=== PATIENT | male | born 1950 | race Caucasian/White ===

== ENCOUNTER 2020-06-10 05:39 | Day surgery (SDC) | payer MEDICARE, OTHER ==
[~2020-06-10 05:39] MED LIST: CEFAZOLIN 2 GM/D5W RTU 2 GM/50 ML RTUPB IV ONE; CEFAZOLIN 2 GM/D5W RTU 2 GM/50 ML RTUPB IV PRN
[2020-06-10] MEDS ORDERED: LIDOCAINE 2% INJ-PF (20 MG/ML) 10 ML AMPUL ONE (06:53)
[2020-06-10] MEDS ORDERED: FENTANYL CITRATE INJ/PF 100 MCG/2 ML AMPUL ONE (06:53)
[2020-06-10] MEDS ORDERED: ONDANSETRON HCL INJ/PF 4 MG/2 ML SDV ONE (06:53)
[2020-06-10] MEDS ORDERED: PROPOFOL INJ 200 MG/20 ML VIAL IV ONE (06:53)
[2020-06-10] MEDS ORDERED: MIDAZOLAM 2 MG/2 ML INJ ONE (06:53)
[2020-06-10] MEDS ORDERED: BUPIVACAINE HCL 0.5 % INJ/PF 30 ML SDV ONE (07:03)
[2020-06-10 07:05] LABS: HEMATOCRIT 33.8 % (37.9-51.0); HEMOGLOBIN 11.6 g/dL (13.5-17.0); MEAN CORPUSCULAR HEMOGLOBIN 32.7 pg (27.0-33.4); MEAN CORPUSCULAR HGB CONC 34.1 g/dL (32.0-36.0); MEAN CORPUSCULAR VOLUME 96 fl (80-97); PLATELET COUNT 151 10^3/uL (150-450); RED BLOOD COUNT 3.53 10^6/uL (4.35-5.55); RED CELL DISTRIBUTION WIDTH 15.2 % (11.5-14.0); WHITE BLOOD COUNT 5.2 10^3/uL (4.0-10.5)
[2020-06-10 07:29] LABS: ANION GAP 8 (5-19); BLOOD UREA NITROGEN 21 mg/dL (7-20); CALCIUM 9.3 mg/dL (8.4-10.2); CARBON DIOXIDE 26 mmol/L (22-30); CHLORIDE 104 mmol/L (98-107); GLUCOSE 122 mg/dL (75-110); POTASSIUM 3.5 mmol/L (3.6-5.0)
[2020-06-10] MEDS ORDERED: LIDOCAINE 1%/EPINEPHRINE INJ 20 ML VIAL ONE (07:30)
[2020-06-10] MEDS ORDERED: PROMETHAZINE HCL INJ 25 MG/1 ML VIAL IV PRN ×2 (08:12)
[2020-06-10] MEDS ORDERED: DIPHENHYDRAMINE HCL 50 MG/ML VIAL IV PRN (08:12)
[2020-06-10] MEDS ORDERED: MORPHINE SULFATE 10 MG/ML INJ IV PRN (08:12)
[2020-06-10] MEDS ORDERED: OXYCODONE-ACETAMINOPHEN 5-325 MG TABLET PO PRN ×2 (08:12)
[2020-06-10] MEDS ORDERED: ONDANSETRON HCL INJ/PF 4 MG/2 ML SDV IV PRN (08:12)
[2020-06-10] MEDS ORDERED: FENTANYL CITRATE INJ/PF 100 MCG/2 ML AMPUL IV PRN ×3 (08:12)
--- NOTE | 2020-06-10 08:36 | Operative Report ---
Operative Report DATE OF SURGERY: 06/10/20 PREOPERATIVE DIAGNOSIS: left carpal tunnel syndrome POSTOPERATIVE DIAGNOSIS: same OPERATION: left carpal tunnel release SURGEON: HALEY STONE ANESTHESIA: LMAC COMPLICATIONS: none ESTIMATED BLOOD LOSS: minimal INTRAOPERATIVE FINDINGS: same PROCEDURE: Indications for procedure: The patient is a 69-year-old man with left carpal tunnel syndrome. He has failed nonoperative treatments including splinting and multiple cortisone injections. Description of procedure: Patient was brought to the operating room and placed supine on the operating room table. All bony prominences were padded. A tourniquet was placed proximally on the left arm but not inflated. Local ane sthesia was administered by surgeon. 1% lidocaine with epinephrine was infiltrated as a local block. The left upper extremity was then sterilely prepped with ChloraPrep and draped in standard fashion. A standard mini open carpal tunnel release was performed. Sharp incision was performed through skin. Blunt dissection was performed through the subcutaneous tissue down to fascia. Fascia was incised with a 15 blade down to the median nerve. The carpal tunnel was released distally to the level of the superficial arch which was visualized. The wrist was then flexed and the proximal margin of the transverse carpal ligament and distal forearm fascia were released under direct visualization. At the conclusion of the procedure the nerve was completely released including the motor branch the median nerve which was visualized. The wound was then copiously irrigated. The skin was reapproximated side to side with a 3-0 Monocryl suture. A bulky sterile dressing was then applied. The patient tolerated the procedure well without complication and was brought recovery room in stable condition.
[2020-06-10 11:22] VITALS: BP 116/54
== END 2020-06-10 10:15 | disposition home or self-care (01) ==
LOC: OROUT 05:39
PROVIDERS: ATTEND Orthopaedic Surgery
DX: G56.02 Carpal tunnel syndrome, left upper limb (principal); M93.1 Kienbock's disease of adults; Z01.812 Encounter for preprocedural laboratory examination; Z20.822 Contact with and (suspected) exposure to COVID-19; M06.9 Rheumatoid arthritis, unspecified; I10 Essential (primary) hypertension; E78.00 Pure hypercholesterolemia, unspecified; K21.9 Gastro-esophageal reflux disease without esophagitis; E11.9 Type 2 diabetes mellitus without complications; M19.031 Primary osteoarthritis, right wrist; Z79.899 Other long term (current) drug therapy; Z79.84 Long term (current) use of oral hypoglycemic drugs
CPT/HCPCS: 36415; 82962; 85027; 80048; 64721; U0003; J2250; J3010; J3490 ×2; J2405; J2704; J0690; C9803; 1810; 87635